=== PATIENT | female | born 1975 | race Caucasian/White ===

== ENCOUNTER 2021-02-24 09:14 | Outpatient (CLI) | payer OTHER | END 2021-02-24 09:15 | disposition home or self-care (01) | LOC: RAD 09:14 | PROVIDERS: ATTEND Internal Medicine Critical Care Medicine | DX: R06.00 Dyspnea, unspecified (principal); J98.4 Other disorders of lung | CPT/HCPCS: 71046 ==

== ENCOUNTER 2023-04-23 03:33 | Observation (INO) | payer OTHER, SELFPAY ==
[2023-04-23 05:01] LABS: #Basophils 0.1 thou/uL (0.0-0.2); #Eosinphils 0.4 thou/uL (0.0-0.7); #Monocytes 0.6 thou/uL (0.11-0.59); #Neutrophils 4.6 thou/uL (1.40-6.50); %Basophils 1.2 % (0.0-1.0); %Eosinophils 5.7 % (0.0-10.0); %Monocytes 8.1 % (0.0-10.0); %Neutrophils 59.7 % (42.0-75.0); Hematocrit 43.6 % (36.0-47.0); Hemoglobin 14.2 g/dL (12.0-16.0); Mean Corpuscular HGB CONC 32.6 g/dL (32.0-36.0); Mean Corpuscular Hemoglobin 30.3 pg (27.0-31.0); Mean Corpuscular Volume 93.2 fl (78.0-98.0); Mean Platelet Volume 9.4 fL (7.4-10.4); Platelet Count 265 10x3/uL (130-400); RBC Distribution Width 13.6 % (11.5-14.5); Red Blood Cell (RBC) Count 4.68 mill/uL (4.20-5.40); White Blood Cell (WBC) Count 7.8 10x3/uL (4.8-10.8)
[2023-04-23 05:09] LABS: BHCG - Serum Negative (NEGATIVE); Pregs Control Background? CLEAR/WHITE (CLR/WHITE); Pregs Control Bar Appear? YES (CONTROL BAR)
[2023-04-23 05:26] LABS: Troponin I Less than 0.010 ng/mL (< 0.028)
[2023-04-23 05:31] LABS: ALT (SGPT) 14 U/L (8-55); AST (SGOT) 14 U/L (5-34); Albumin 4.2 g/dL (3.5-5.0); Alkaline Phosphatase 115 U/L (40-110); Anion Gap 14 mmol/L (10-20); BUN (Urea Nitrogen) 13 mg/dL (7.0-18.7); Bilirubin, Total 0.4 mg/dL (0.2-1.2); Calc. Creatinine Clearance 0 mL/min (70-130); Calcium 9.3 mg/dL (7.8-10.44); Carbon Dioxide 23 mmol/L (22-29); Chloride 105 mmol/L (98-107); Estimated GFR 90; Globulin 3.4 g/dL (2.4-3.5); Glucose 114 mg/dL (70-105); Magnesium 2.2 mg/dL (1.6-2.6); Potassium 4.1 mmol/L (3.5-5.1); Protein, Total 7.6 g/dL (6.0-8.3); Sodium 138 mmol/L (136-145)
[2023-04-23 05:44] LABS: Bacteria/HPF None Seen HPF (None Seen); Bilirubin Negative (Negative); Blood, Urine Negative (Negative); CAUTI Indications for Culture Dysuria,urgency,freq; Clarity Clear (Clear); Glucose, Urine (Dipstick) Normal (Negative); Ketone, Urine Negative (Negative); Leukocyte Negative Leu/uL (Negative); Nitrite Negative (Negative); Protein, Urine (Dipstick) Negative (Neg-Trace); RBC/HPF 0-3 HPF (0-3); Specific Gravity, Urine 1.021 (1.002-1.036); Squamous Epithelial 0-3 HPF (0-3); Urobilinogen Normal mg/dL (Less than 2); WBC/HPF 0-3 HPF (0-3); pH, Urine 5.5 (5.0-9.0)
[2023-04-23 05:46] LABS: Urine Culture Reflex No No
[2023-04-23 06:20] LABS: T4 5.94 ug/dL (4.87-11.72)
[2023-04-23] MEDS ORDERED: Ondansetron PF 4 MG/2 ML Vial IVP PRN (07:20)
[2023-04-23] MEDS ORDERED: Acetaminophen 325 MG TAB PO PRN (07:20)
[2023-04-23 08:40] LABS: Troponin I Less than 0.010 ng/mL (< 0.028)
[2023-04-23] MEDS ORDERED: Thyroid 30 MG TAB PO SCH (09:45)
[2023-04-23 10:05] LABS: SARS-CoV-2 NAA Rapid Test Not Detected (NotDetected)
[2023-04-23 10:41] VITALS: BMI 49.1
[2023-04-23 11:04] LABS: Troponin I Less than 0.010 ng/mL (< 0.028)
[2023-04-24 06:33] LABS: Albumin 3.7 g/dL (3.5-5.0)
[2023-04-24 06:34] LABS: Chloride 108 mmol/L (98-107); Sodium 137 mmol/L (136-145)
[2023-04-24 06:35] LABS: Calcium 8.7 mg/dL (7.8-10.44)
[2023-04-24 06:36] LABS: Glucose 95 mg/dL (70-105); Protein, Total 7.1 g/dL (6.0-8.3); Triglycerides 201 mg/dL (Less than 150)
[2023-04-24 06:37] LABS: Carbon Dioxide 15 mmol/L (22-29)
[2023-04-24 06:38] LABS: Bilirubin, Total 0.5 mg/dL (0.2-1.2)
[2023-04-24 06:42] LABS: #Basophils 0.1 thou/uL (0.0-0.2); #Eosinphils 0.4 thou/uL (0.0-0.7); #Monocytes 0.5 thou/uL (0.11-0.59); #Neutrophils 3.8 thou/uL (1.40-6.50); %Eosinophils 5.3 % (0.0-10.0); %Lymphocytes 30.8 % (21.0-51.0); %Monocytes 7.7 % (0.0-10.0); %Neutrophils 54.9 % (42.0-75.0); Hematocrit 45.4 % (36.0-47.0); Mean Corpuscular HGB CONC 30.8 g/dL (32.0-36.0); Mean Corpuscular Hemoglobin 30.6 pg (27.0-31.0); Mean Corpuscular Volume 99.3 fl (78.0-98.0); Mean Platelet Volume 10.5 fL (7.4-10.4); Platelet Count 207 10x3/uL (130-400); RBC Distribution Width 13.9 % (11.5-14.5); Red Blood Cell (RBC) Count 4.57 mill/uL (4.20-5.40); White Blood Cell (WBC) Count 6.8 10x3/uL (4.8-10.8)
[2023-04-24 06:42] LABS: ALT (SGPT) 13 U/L (8-55); AST (SGOT) 16 U/L (5-34); Alkaline Phosphatase 104 U/L (40-110); BUN (Urea Nitrogen) 12 mg/dL (7.0-18.7); Bilirubin, Direct 0.2 mg/dL (0.1-0.3); Calc. Creatinine Clearance 207 mL/min (70-130); Cardiac Risk 6.8 (Less than 4.5); Cholesterol 265 mg/dl (< 200 Desired); Estimated GFR 96; HDL Cholesterol 39 mg/dL (>60 Neg Risk); LDL Cholesterol, Calculated 186 mg/dL; Magnesium 2.2 mg/dL (1.6-2.6)
[2023-04-24 06:45] LABS: Anion Gap 18 mmol/L (10-20)
[2023-04-24] MEDS ORDERED: Thyroid 30 MG TAB PO SCH (09:00)
[2023-04-24 15:04] LABS: Anion Gap 14 mmol/L (10-20); BUN (Urea Nitrogen) 13 mg/dL (7.0-18.7); Calc. Creatinine Clearance 186 mL/min (70-130); Calcium 8.9 mg/dL (7.8-10.44); Carbon Dioxide 22 mmol/L (22-29); Chloride 106 mmol/L (98-107); Estimated GFR 84; Glucose 99 mg/dL (70-105); Sodium 138 mmol/L (136-145)
[2023-04-24 16:44] VITALS: BP 111/72; TEMP 97.9
== END 2023-04-24 17:05 | disposition home or self-care (01) ==
LOC: SUATTDRO 03:33 → ERS 03:33 → ERHOLD 07:17 → 2SW 15:04
PROVIDERS: ADMIT Family Medicine; ATTEND Internal Medicine
DX: R55 Syncope and collapse (principal); R53.1 Weakness; R73.03 Prediabetes; E03.9 Hypothyroidism, unspecified; E78.5 Hyperlipidemia, unspecified; Z90.49 Acquired absence of other specified parts of digestive tract; Z88.2 Allergy status to sulfonamides; Z90.710 Acquired absence of both cervix and uterus; Z79.890 Hormone replacement therapy; Z79.899 Other long term (current) drug therapy
CPT/HCPCS: 36415; 71045; 80048; 80053; 80061; 80076; 81001; 83036; 83735; 83880; 84436; 84443; 84481; 84484; 84703; 85025; 85379; 86850; 86900; 86901; 93005; 93306; 94760; 96360; 96361; G0378